=== PATIENT | male | born 1995 | race Caucasian/White ===

== ENCOUNTER 2020-05-06 13:44 | Inpatient (IN) ==
[2020-05-06] MEDS ORDERED: SODIUM CHLORIDE 0.9% 1000ML 2,000 ML IV ONE (13:55)
[2020-05-06] MEDS ORDERED: LEVOFLOXACIN/D5W 750 MG/150 ML BAG IV STA (14:00)
--- NOTE | 2020-05-06 14:21 | Emergency Department Note ---
Impression & Plan Bacteremia, Fever, Urinary tract infection, Hypomagnesemia ED Provider Note NAME: ELADIA WAGNER AGE: 24 SEX: M : 1995 ARRIVES VIA: Ambulance INFORMANT: Patient, ED PROVIDER(S): Gurmeet Zelaya DO CHIEF COMPLAINT: Fever HPI: The patient is a 24-year-old male who presented to the emergency department by ambulance for an evaluation of fever and body aches. The patient was seen in our facility last evening and had a complete work-up including blood cultures. He also had a COVID swab which is still pending. The patient was called to return to the emergency department by the pharmacist for an evaluation because of positive blood cultures for gram-negative bacteria. The patient continues to have fever and chills. He complains of no abdominal pain at this time but does state that he had left upper quadrant abdominal pain last evening. He does complain of cough but states that this is "because I smoke". The patient denies having any hemoptysis. He notices no rashes or lower extremity swelling. He notices no rectal bleeding or rectal discharge. He denies having any dysuria but does complain of some frequency. The patient did not take the antibiotic that was prescribed for him today. The patient did have a CAT scan last evening which did not reveal any acute inflammatory process in the abdomen. ROS: See above HPI for pertinent positives & negatives. A total of 10 systems reviewed and were otherwise negative. PAST MEDICAL HISTORY: See Below PAST SURGICAL HISTORY: See Below FAMILY HISTORY: See Below SOCIAL HISTORY: See Below HOME MEDICATIONS: See Below ALLERGIES: See Below VITALS: See Below PHYSICAL EXAMINATION: GENERAL: The patient is awake and alert. He is somewhat anxious appearing but overall comfortable. EYES: The conjunctivae are clear. The pupils are round and reactive. EARS, NOSE, MOUTH AND THROAT: The nose is without any evidence of any deformity. Mucous membranes are moist. Tongue is midline. NECK: The neck is nontender and supple. RESPIRATORY: Normal respiratory effort is noted there is no evidence of wheezing rhonchi or rales CARDIOVASCULAR: Tachycardic rate with regular rhythm was noted. There was no definite murmur. GASTROINTESTINAL: The abdomen is soft. Abdomen is nontender. MUSCULOSKELETAL/EXTREMITIES: There is no evidence of gross deformity full range of motion is noted in the hips and shoulders. SKIN: There is no obvious evidence of any rash. There are no petechiae, pallor or cyanosis noted. NEUROLOGIC: Patient is awake alert and oriented x3 strength is symmetric patellar reflexes are 2+ bilaterally MEDICAL DECISION MAKING: The patient is a 24-year-old male who presented to the emergency department for an acute febrile illness. The patient was seen in our facility last evening for similar complaints. He was diagnosed with urinary tract infection. He was started on Cipro. Today he was instructed to return to the emergency department because of bacteremia that was noted on blood cultures. He returns emergency department today febrile and tachycardic. He did not take his morning dose of antibiotic. The patient was treated with IV fluids and IV antibiotics. He was reevaluated multiple times. I discussed the patient's laboratory and radiographic studies with him. The [facility] group was notified about the patient. He is to be evaluated by them for further management and disposition. Triage Nursing notes reviewed. Prior medical records reviewed Vital Signs: reviewed and remarkable for tachycardia and fever. Differential diagnosis: Viral syndrome, otitis, pharyngitis, pneumonia, influenza, meningitis, urinary tract infection, sepsis, bacteremia, as well as other pathologies. ER treatment provided: See below Diagnostics interpreted by me: ECG: EKG was obtained in the emergency department. My interpretation is sinus tachycardia at 107 bpm. There was no ectopy. There was no acute ST segment abnormalities noted. This was compared to a tracing from June 142017. No significant changes were noted. Cardiac Monitoring: An order was placed for continuous cardiac monitoring. The monitor shows a rate of 115 bpm with sinus tachycardia rhythm. Laboratory studies: As stated above and show below. Imaging studies: See below Consultation(s): 1500: [facility] hospitalist group was notified about the patient. Past Med/Surg History Medical History (Updated 05/07/20 @ 03:15 by Rodrigo Rizzo MD) Chronic prostatitis Submandibular gland tenderness Surgical History No pertinent past surgical history Social History Smoking Status: Current every day smoker Hx Alcohol Use: Yes Alcohol type: hard liquor Preferred Language: Tam[place] Communication Ability: Effective Beliefs That Will Affect Care: Sabianism Sabianism Beliefs: Religion Current Living Situation: Alone Current Living Situation Comment: FAMILY CLOSE BY IN [place] Other Information That Helps Us Care for You: No Feels Safe at Home: Yes Safety Concerns: Feels Safe At This Time Allergies Allergies Allergy/AdvReac Type Severity Reaction Status Date / Time azithromycin Allergy Rash Verified 05/06/20 15:49 Home Meds Home Medications Medication Instructions Recorded Confirmed emtricitabine-tenofovir alafen 1 tab PO DIRECTED PRN 05/06/20 05/06/20 [Descovy] Previous Rx's Medication Instructions Recorded ciprofloxacin HCl [Cipro] 500 mg PO BID #20 tab 05/06/20 Results & Data (ED) Vital Signs Vital Signs - 24 hr 05/06/20 13:51 05/06/20 14:25 05/06/20 14:49 Temperature 38.4 C H Temperature Source Oral Pulse Rate 120 H 103 H Pulse Rate from SpO2 Sensor 101 H Respiratory Rate 16 18 Respiratory Effort / Characteristics Non-Labored Spontaneous Blood Pressure 146/99 H 126/80 Blood Pressure Mean 114 93 Pulse Oximetry 94 97 Oxygen Delivery Method Room Air Sepsis Recent Fever Within 48 Hours No Sepsis New/Unexplained Change in Mental Status N/A Sepsis Action Taken by Nursing Physician Notified 05/06/20 15:00 05/06/20 15:30 05/06/20 16:00 Temperature Temperature Source Pulse Rate 97 H 100 H 99 H Pulse Rate from SpO2 Sensor 98 H 102 H 110 H Respiratory Rate 22 20 20 Respiratory Effort / Characteristics Blood Pressure 134/82 123/74 117/86 Blood Pressure Mean 100 91 96 Pulse Oximetry 98 96 97 Oxygen Delivery Method Sepsis Recent Fever Within 48 Hours Sepsis New/Unexplained Change in Mental Status Sepsis Action Taken by [facility] Medications Current Medication List: was personally reviewed by me Laboratory Data Attestation: I reviewed the patient's lab results. Result diagrams: 05/06/20 14:05 05/07/20 07:31 Lab Results 05/06/20 05/06/20 05/06/20 Range/Units 14:05 14:05 14:05 WBC 9.50 (4.8-10.8) K/uL RBC 4.74 (4.7-6.1) M/uL Hgb 14.3 (14.0-18.0) g/dL Hct 42.3 (42-52) % MCV 89.2 (80-100) fL MCH 30.2 (25-34) pg MCHC 33.8 (32-36) g/dL RDW Std Deviation 41.9 (36.4-46.3) fL RDW Coeff of Adilene 12.8 (11.5-14.5) % Plt Count 168 (130-400) K/uL MPV 9.5 (7.4-10.4) fL Immature Gran % (Auto) 0.1 % Neut % (Auto) 79.0 % Lymph % (Auto) 13.6 % Hettinger % (Auto) 6.9 % Eos % (Auto) 0.2 % Baso % (Auto) 0.2 % Neut # (Auto) 7.50 H (1.4-6.5) K/uL Lymph # (Auto) 1.29 (1.2-3.4) K/uL Hettinger # (Auto) 0.66 H (0.11-0.59) K/uL Eos # (Auto) 0.02 (0-0.5) K/uL Baso # (Auto) 0.02 (0-0.2) K/uL Immature Gran # (Auto) 0.01 (0.00-0.02) K/uL PT 13.6 H (9.0-12.0) Seconds INR 1.3 H (0.9-1.1) APTT 33.5 H (21.0-31.0) Seconds PTT Ratio 1.2 Sodium 136 (136-145) mmol/L Potassium 3.5 (3.5-5.1) mmol/L Chloride 104 (98-107) mmol/L Carbon Dioxide 24 (21-32) mmol/L Anion Gap 9.0 (3-11) BUN 7 (7-18) mg/dl Creatinine 1.13 (0.6-1.4) mg/dl Est Cr Clr Drug Dosing 109.9 ml/min Est GFR ( Amer) 103.4 Est GFR (Non-Af Amer) 89.2 BUN/Creatinine Ratio 6.2 L (10-20) Glucose 95 (70-99) mg/dl Lactate (0.4-2.0) mmol/L Calcium 9.1 (8.5-10.1) mg/dl Magnesium 1.7 L (1.8-2.4) mg/dl Total Bilirubin 1.1 H (0.2-1) mg/dl AST 18 (15-37) U/L ALT 21 (12-78) U/L Alkaline Phosphatase 60 (45-117) U/L Troponin I < 0.015 (0-0.045) ng/ml Total Protein 7.8 (6.4-8.2) gm/dl Albumin 4.0 (3.4-5.0) gm/dl Globulin 3.8 (2.5-4.0) gm/dl Albumin/Globulin Ratio 1.1 (0.9-2) Procalcitonin (0-0.5) ng/ml 05/06/20 05/06/20 Range/Units 14:05 14:12 WBC (4.8-10.8) K/uL RBC (4.7-6.1) M/uL Hgb (14.0-18.0) g/dL Hct (42-52) % MCV (80-100) fL MCH (25-34) pg MCHC (32-36) g/dL RDW Std Deviation (36.4-46.3) fL RDW Coeff of Adilene (11.5-14.5) % Plt Count (130-400) K/uL MPV (7.4-10.4) fL Immature Gran % (Auto) % Neut % (Auto) % Lymph % (Auto) % Hettinger % (Auto) % Eos % (Auto) % Baso % (Auto) % Neut # (Auto) (1.4-6.5) K/uL Lymph # (Auto) (1.2-3.4) K/uL Hettinger # (Auto) (0.11-0.59) K/uL Eos # (Auto) (0-0.5) K/uL Baso # (Auto) (0-0.2) K/uL Immature Gran # (Auto) (0.00-0.02) K/uL PT (9.0-12.0) Seconds INR (0.9-1.1) APTT (21.0-31.0) Seconds PTT Ratio Sodium (136-145) mmol/L Potassium (3.5-5.1) mmol/L Chloride (98-107) mmol/L Carbon Dioxide (21-32) mmol/L Anion Gap (3-11) BUN (7-18) mg/dl Creatinine (0.6-1.4) mg/dl Est Cr Clr Drug Dosing ml/min Est GFR ( Amer) Est GFR (Non-Af Amer) BUN/Creatinine Ratio (10-20) Glucose (70-99) mg/dl Lactate 1.3 (0.4-2.0) mmol/L Calcium (8.5-10.1) mg/dl Magnesium (1.8-2.4) mg/dl Total Bilirubin (0.2-1) mg/dl AST (15-37) U/L ALT (12-78) U/L Alkaline Phosphatase (45-117) U/L Troponin I (0-0.045) ng/ml Total Protein (6.4-8.2) gm/dl Albumin (3.4-5.0) gm/dl Globulin (2.5-4.0) gm/dl Albumin/Globulin Ratio (0.9-2) Procalcitonin 0.69 H (0-0.5) ng/ml Administered Medications Acetaminophen (Acetaminophen 325 Mg Tab) 650 mg PO Q4H PRN PRN Reason: Pain or Fever Stop: 06/05/20 19:12 Last Admin: 05/06/20 21:24 Dose: 650 mg Documented by: [id number] Piperacillin Sod/Tazobactam (Sod 3.375 gm/ Dextrose) 115 mls @ 28.75 mls/hr IV Q8H LORENA; Protocol Stop: 05/20/20 21:59 Last Infusion: 05/07/20 10:20 Dose: 0 mls/hr Documented by: [id number] Admin: 05/07/20 06:10 Dose: 28.8 mls/hr Documented by: [id number] Infusion: 05/07/20 01:32 Dose: 0 mls/hr Documented by: [id number] Admin: 05/06/20 21:24 Dose: 28.8 mls/hr Documented by: [id number] Doxycycline Hyclate 100 mg/ (Dextrose) 110 mls @ 50 mls/hr IV Q12H LORENA Stop: 05/17/20 00:00 Last Admin: 05/07/20 12:12 Dose: 50 mls/hr Documented by: [id number] Infusion: 05/07/20 03:49 Dose: 0 mls/hr Documented by: [id number] Admin: 05/07/20 01:32 Dose: 50 mls/hr Documented by: [id number] Miscellaneous (Descovy- Order Awaiting Action) 1 ea N/A QS LORENA Stop: 06/06/20 00:00 Last Admin: 05/07/20 08:30 Dose: Not Given Documented by: [id number] Admin: 05/06/20 23:46 Dose: Not Given Documented by: [id number] Discontinued Medications Acetaminophen (Acetaminophen 500 Mg Tab) 1,000 mg PO NOW STA Stop: 05/06/20 14:57 Last Admin: 05/06/20 15:54 Dose: 1,000 mg Documented by: [id number] Sodium Chloride (Nss 1000ml) 2,000 mls @ 999 mls/hr IV .Q2H1M ONE Stop: 05/06/20 15:55 Last Infusion: 05/06/20 16:22 Dose: 0 mls/hr Documented by: [id number] Admin: 05/06/20 14:35 Dose: 999 mls/hr Documented by: [id number] Levofloxacin/Dextrose (Levaquin/D5w) 750 mg in 150 mls @ 100 mls/hr IV NOW STA Stop: 05/06/20 15:29 Last Infusion: 05/06/20 16:22 Dose: 0 mls/hr Documented by: [id number] Admin: 05/06/20 14:48 Dose: 100 mls/hr Documented by: [id number] Piperacillin Sod/Tazobactam Sod (Zosyn) 4.5 gm in 120 mls @ 240 mls/hr IV NOW ONE Stop: 05/06/20 15:21 Last Infusion: 05/06/20 17:07 Dose: 0 mls/hr Documented by: [id number] Admin: 05/06/20 16:22 Dose: 240 mls/hr Documented by: [id number] Magnesium Sulfate/Dextrose (Magnesium Sulfate / D5w) 1 gm in 100 mls @ 100 mls/hr IV Q1H LORENA Stop: 05/06/20 16:58 Last Infusion: 05/06/20 19:47 Dose: 0 mls/hr Documented by: [id number] Admin: 05/06/20 18:11 Dose: 100 mls/hr Documented by: [id number] Infusion: 05/06/20 17:22 Dose: 100 mls/hr Documented by: [id number] Admin: 05/06/20 16:22 Dose: 100 mls/hr Documented by: [id number] Potassium Chloride/Sodium Chloride (Normal Saline W/20 Meq Kcl) 20 meq in 1,000 mls @ 150 mls/hr IV .Q6H40M LORENA Stop: 05/07/20 09:04 Last Infusion: 05/07/20 08:30 Dose: 0 mls/hr Documented by: [id number] Admin: 05/07/20 01:33 Dose: 150 mls/hr Documented by: [id number] Infusion: 05/07/20 01:33 Dose: 150 mls/hr Documented by: [id number] Admin: 05/06/20 20:02 Dose: 150 mls/hr Documented by: [id number] Imaging Data Radiologist's Impression: SINGLE VIEW CHEST CLINICAL HISTORY: Sepsis. FINDINGS: An AP, portable, upright chest radiograph is compared to study dated 05/05/2020. The cardiomediastinal silhouette is unremarkable. There is mild elevation of right hemidiaphragm. The lungs and pleural spaces are clear. No pneumothorax is seen. The bony thorax is grossly intact. IMPRESSION: No active disease in the chest and no change from yesterday. ACT 112: Negative or not required by law. Electronically signed by: Ronn Chaney M.D. 05/06/2020 2:59 PM Dictated: 05/06/201458 Transcribed: 05/06/201458 Blood Pressure Blood Pressure Findings: Normal blood pressure Discharge Plan Visit Data Chief Complaint: Abnormal Labs/Diagnostic Testing ED Provider: Gurmeet Zelaya Discharge Problem: Bacteremia, Fever, Urinary tract infection, Hypomagnesemia Patient Disposition: Admitted As Inpatient Condition: Good Discharge Instructions Interventions: ED Discharge Assessment Last Done: 05/06/20 18:45 Discharge Problem: Fever Qualifiers: Fever type: unspecified Qualified Code(s): R50.9 - Fever, unspecified Urinary tract infection Qualifiers: Urinary tract infection type: site unspecified Hematuria presence: without hematuria Qualified Code(s): N39.0 - Urinary tract infection, site not specified
[2020-05-06 14:31] LABS: Basophils # (auto) 0.02 K/uL (0-0.2); Basophils % (auto) 0.2 %; Eosinophils # (auto) 0.02 K/uL (0-0.5); Eosinophils % (auto) 0.2 %; Hematocrit (blood only) 42.3 % (42-52); Hemoglobin 14.3 g/dL (14.0-18.0); Immature Granulocytes # (auto) 0.01 K/uL (0.00-0.02); Immature Granulocytes % (auto) 0.1 %; Lymphocytes # (auto) 1.29 K/uL (1.2-3.4); Lymphocytes % (auto) 13.6 %; Mean Corpuscular Hemoglobin 30.2 pg (25-34); Mean Corpuscular Hgb Conc 33.8 g/dL (32-36); Mean Corpuscular Volume 89.2 fL (80-100); Mean Platelet Volume 9.5 fL (7.4-10.4); Monocytes # (auto) 0.66 K/uL (0.11-0.59); Monocytes % (auto) 6.9 %; Platelet Count 168 K/uL (130-400); RDW Coefficient of Variation 12.8 % (11.5-14.5); RDW Standard Deviation 41.9 fL (36.4-46.3); Red Blood Count 4.74 M/uL (4.7-6.1)
[2020-05-06 14:46] LABS: INR 1.3 (0.9-1.1); Partial Thromboplastin Ratio 1.2; Partial Thromboplastin Time 33.5 Seconds (21.0-31.0); Prothrombin Time 13.6 Seconds (9.0-12.0)
[2020-05-06] MEDS ORDERED: PIPERACILLIN/TAZOBACTAM 4.5 GM/120 ML BAG IV ONE (14:52)
[2020-05-06] MEDS ORDERED: PIPERACILL/TAZOBAC CONSULT ACTIVE PRN (14:52)
[2020-05-06 14:53] LABS: Alanine Aminotransferase 21 U/L (12-78); Aspartate Aminotransferase 18 U/L (15-37); BUN Creatinine Ratio 6.2 (10-20); Blood Urea Nitrogen 7 mg/dl (7-18); Calcium 9.1 mg/dl (8.5-10.1); Carbon Dioxide 24 mmol/L (21-32); Chloride 104 mmol/L (98-107); Creatinine Clr Calc Pharmacy 109.9 ml/min; Est GFR (African American) 103.4; Est GFR (Non-African American) 89.2; Glucose 95 mg/dl (70-99); Magnesium 1.7 mg/dl (1.8-2.4); Potassium 3.5 mmol/L (3.5-5.1); Sodium 136 mmol/L (136-145)
[2020-05-06] MEDS ORDERED: ACETAMINOPHEN 500 MG TAB PO STA (14:56)
[2020-05-06 14:58] LABS: Albumin Globulin Ratio 1.1 (0.9-2); Alkaline Phosphatase 60 U/L (45-117); Bilirubin,Total 1.1 mg/dl (0.2-1); Globulin 3.8 gm/dl (2.5-4.0); Total Protein 7.8 gm/dl (6.4-8.2); Troponin I < 0.015 ng/ml (0-0.045)
--- NOTE | 2020-05-06 15:00 | XRay Report ---
SINGLE VIEW CHEST CLINICAL HISTORY: Sepsis. FINDINGS: An AP, portable, upright chest radiograph is compared to study dated 05/05/2020. The cardiom ediastinal silhouette is unremarkable. There is mild elevation of right hemidiaphragm. The lungs and pleural spaces are clear. No pneumothorax is seen. The bony thorax is grossly intact. IMPRESSION: No active disease in the chest and no change from yesterday. ACT 112: Negative or not required by law. Electronically signed by: Ronn Chaney M.D. 05/06/2020 2:59 PM
[2020-05-06] MEDS: MAGNESIUM SULFATE / D5W 1 GM/100 ML BAG IV SCH ×2 (16:22→18:11)
[2020-05-06 16:42] LABS: Appearance Urine Clear (Clear); Bacteria Urine Automated Negative (Negative); Bilirubin Urine Negative (Negative); Blood Urine Negative (Negative); Color Urine Yellow; Glucose Urine UA Negative (Negative); Ketones Urine Trace (Negative); Leukocyte Esterase Urine Trace (Negative); Nitrite Urine Negative (Negative); Protein Urine Negative (Negative); RBC Urine Automated 0-4 /hpf (0-4); Specific Gravity Urine 1.008 (1.000-1.030); Urobilinogen Urine Negative (Negative); pH Urine 7.5 (4.5-7.5)
--- NOTE | 2020-05-06 16:58 | Electrocardiogram Report ---
Test Reason : Blood Pressure : / mmHG Vent. Rate : 107 BPM Atrial Rate : 107 BPM P-R Int : 128 ms QRS Dur : 078 ms QT Int : 312 ms P-R-T Axes : 034 019 032 degrees QTc Int : 416 ms Poor data quality, interpretation may be adversely affected Sinus tachycardia Otherwise normal ECG When compared with ECG of 05-MAY-2020 22:43, (unconfirmed) No significant change was found Confirmed by David Cleaning ([id number]) on 05/06/2020 4:58:04 PM Referred By: REFERRED SELF Confirmed By:Yaw Cleaning
--- NOTE | 2020-05-06 17:06 | History & Physical Report ---
Date of Service May 06, 2020 Assessment & Plan (1) Acute bacterial prostatitis: Continue Zosyn pending results of culture. Add doxycycline as Zosyn would not cover chlamydia. (2) Bacteremia: GNR on blood culture (3) Hypomagnesemia: Mg 1.6 on admission. Mag sulfate 2 g IV given in ER. Monitor with level in a.m. (4) Muscle spasm of back: Acetaminophen, heating pad, encourage stretching. Likely causing his headaches. (5) Headache: As above (6) Submandibular gland tenderness: No pain currently but recurrent episodes of this. Possibly traumatic vs. stone vs. dehydration. Stop using gatorade to treat this. Likely helps due to stimulating secretion. Same effect can be had with small amount of sour fruit and hydrating with water. (7) Tobacco use disorder: Increasing risk of infections. Highly recommend cessation. (8) High risk sexual behavior: Continue PREP. Urine PCR for chlamydia and gonorrhea. Admission and Anticipated Discharge Date Admission Date: 05/06/2020 History of Present Illness Chief Complaint: Bacteremia Primary Care Provider: DO Marko Bear Mindi is a 24 year old male with "recurrent UTIs" who returns to the ER w ith fever and body aches after being called by the ER pharmacist due to positive blood cultures for GNR. A COVID-19 test was also taken which was sent to [facility] and is pending at this time. UA was positive for infection and he was given ceftriaxone 2g IV and started on ciprofloxacin. Despite this he continued to have fevers and was dizzy at home to the point of his nearly passing out. His main complaint is left sided abdominal pain, no radiation, no association with bowel movements. He is also having b/l testicular pain. No pain on BM. He is homosexual and receives anal unprotected sex. He reports prostate pain on multiple occasions both with anal sex and "prostate toys" in the past but with resolution of symptoms in between episodes. He does note a history of "recurrent UTIs" requiring 10 day courses of ciprofloxacin but dysuria will frequently return a week after stopping the antibiotics. He has been having his usual prostate pain on and off for the last 3 months. However in the last two weeks he has been having increased problems on trying to start to urinate and more constant pain. This has been associated with him "edging" - masturbating but stopping just prior to ejaculation. No urinary frequency, dysuria, nocturia, poor stream, terminal dribbling. No rectal pain or discharge. Allergies Allergy/AdvReac Type Severity Reaction Status Date / Time azithromycin Allergy Rash Verified 05/06/20 15:49 Home Medications Home Medications Medication Instructions Recorded Confirmed Type ciprofloxacin HCl [Cipro] 500 mg PO BID #20 tab 05/06/20 05/06/20 Rx emtricitabine-tenofovir alafen 1 tab PO DIRECTED PRN 05/06/20 05/06/20 History [Descovy] Past Med/Surg History Medical History Chronic prostatitis Submandibular gland tenderness Surgical History No pertinent past surgical history Social History Smoking Status: Current every day smoker Hx Alcohol Use: Yes Alcohol type: hard liquor Preferred Language: [place] Communication Ability: Effective Beliefs That Will Affect Care: Gnosticist Gnosticist Beliefs: Yazidi Current Living Situation: Alone Current Living Situation Comment: FAMILY CLOSE BY IN [place] Other Information That Helps Us Care for You: No Feels Safe at Home: Yes Safety Concerns: Feels Safe At This Time Review of Systems Review of Systems: All systems reviewed & are unremarkable except as noted in HPI & below Physical Exam Constitutional: well developed, well nourished and + obese; no acute distress Eyes: + anicteric sclerae; normal pupil size ENMT: external ear and nose normal, oropharynx normal Neck: trachea midline, no thyromegaly Respiratory: normal respiratory effort, lungs clear to auscultation Cardiovascular: Rate/Rhythm: regular rhythm and + tachycardic Heart Sounds: no murmur Extremities: normal capillary refill and + pedal edema; no calf tenderness Gastrointestinal (Abdomen): Inspection/Auscultation: abdomen normal to inspection and normal bowel sounds; abdomen not distended Percussion/Palpation: + abdomen tender (Left lower quadrant) and abdomen soft; no guarding and abdomen not rigid Musculoskeletal: no cyanosis or clubbing, extremities motor strength 5/5 Skin: no rashes, warm and dry Neurologic: moves all extremities and awake; not confused Psychiatric: A+Ox3, euthymic affect Genitourinary: no CVA tenderness, no penis abnormality and no scrotum abnormality Lymphatic: no inguinal lymphadenopathy Results & Data Results & Data ([facility]) Vital Signs (Past 12 Hours) Vital Signs Temp Pulse Resp BP Pulse Ox 05/06/20 16:00 99 H 20 117/86 97 05/06/20 15:30 100 H 20 123/74 96 05/06/20 15:00 97 H 22 134/82 98 05/06/20 14:49 103 H 18 126/80 97 05/06/20 13:51 38.4 C H 120 H 16 146/99 H 94 Code Status & VTE Plan VTE Prophylaxis Plan VTE Prophylaxis will be ordered: No PG Care Time/CCT Total # of Minutes Spent Total Time Spent with Patient: Total time spent is greater than 50% in coordination of care (as documented) at patient's floor/unit and/or counseling patient: Coding Level of Care Code 39820 Initial Inpt Care Lvl 3 Diagnoses Acute bacterial prostatitis N41.0 Bacteremia R78.81 Hypomagnesemia E83.42 Muscle spasm of back M62.830 Headache R51 Submandibular gland tenderness K11.8 Tobacco use disorder F17.200 High risk sexual behavior Z72.51
[2020-05-06] MEDS ORDERED: ACETAMINOPHEN 325 MG TAB PO PRN (19:13)
[2020-05-06] MEDS: NSS + 20MEQ KCL 20 MEQ/1,000 ML BAG IV SCH (20:02)
[2020-05-06] MEDS: PIPERACILLIN/TAZOBACTAM 3.375 GM in DEXTROSE 5% 100 ML IV SCH (21:24)
[2020-05-06] MEDS ORDERED: LACTATED RINGER'S 1,000 ML IV SCH (22:15)
[2020-05-07] MEDS: DOXYCYCLINE HYCLATE 100 MG in DEXTROSE 5% 100 ML IV SCH ×2 (01:32→12:12)
[2020-05-07] MEDS: NSS + 20MEQ KCL 20 MEQ/1,000 ML BAG IV SCH (01:33)
[2020-05-07] MEDS: PIPERACILLIN/TAZOBACTAM 3.375 GM in DEXTROSE 5% 100 ML IV SCH ×3 (06:10→22:10)
[2020-05-07 08:24] LABS: BUN Creatinine Ratio 5.6 (10-20); C Reactive Protein 6.59 mg/dl (0-0.29); Calcium 8.3 mg/dl (8.5-10.1); Est GFR (African American) 132.6; Est GFR (Non-African American) 114.4; Potassium 3.9 mmol/L (3.5-5.1)
--- NOTE | 2020-05-07 17:44 | Hospitalist Progress Note ---
Date of Service May 07, 2020 Assessment & Plan (1) Acute bacterial prostatitis: Continue zosyn pending results of culture. blood and urine culture from initial ED visit are still pending today no fever, WBC normal continue Doxycycline to cover Chlamydia and Gonorrhea, those results still pending as well COVID negative, remove isolation precautions anticipate urine and blood culture results should be back tomorrow, can hopefully transition to PO antibiotics would treat for 4 weeks total to cover prostatitis would use Doxycycline for 7 days total to cover possible G/C infection as those results may not be back prior to discharge (2) Bacteremia: GNR on culture still nothing more specific on culture today, continue Zosyn no fever, WBC stable (3) Hypomagnesemia: replaced (4) Muscle spasm of back: Acetaminophen, heating pad, encourage stretching. (5) Headache: (6) Submandibular gland tenderness: No pain currently but recurrent episodes of this. Possibly traumatic vs. stone vs. dehydration. Stop using gatorade to treat this. Likely helps due to stimulating secretion. Same effect can be had with small amount of sour fruit and hydrating with water. (7) Tobacco use disorder: Increasing risk of infections. Highly recommend cessation. (8) High risk sexual behavior: Continue PREP. Urine PCR for chlamydia and gonorrhea. instructed that he needs to abstain from anal intercourse for at least a month to allow prostatitis and UTI to adequately resolved discussed that he will continue to be at risk for infections in the future Admission and Anticipated Discharge Date Admission Date: May 06, 2020 Subjective patient resting comfortably in bed, no acute issues discussed reasons for getting prostatitis and bacteremia told him that he would need to abstain from anal sexual activity for at least a month he told me that he forgot to mention to admitting physician that he also likes to participate in "medical play" he said that he performs a straight cath on himself about twice a week, he swears that it is always sterile technique with gloves reviewed chart, no fevers, vitals stable COVID was a send out, still pending, ordered a rapid test in house to stop wasting PPE, it came back negative, remove isolation blood and urine cultures from the ED visit are still pending, still says gram negative rods Review of Systems Review of Systems: All systems reviewed & are unremarkable except as noted in Subjective Constitutional: no fever, no chills, no sweats, no fatigue and no weakness Respiratory: no cough and no dyspnea Cardiovascular: no chest pain and no edema Gastrointestinal: no abdominal pain, no nausea, no vomiting, no constipation and no diarrhea/loose stools Genitourinary: no dysuria, no difficulty urinating, no urinary frequency, no urinary incontinence, no hematuria, no flank pain, no genital pain, no testicle pain and no penile discharge Integumentary: no rash Physical Exam Constitutional: well developed, comfortable and + overweight; no acute distress Eyes: PERRL, conjunctivae normal, anicteric sclerae ENMT: external ear and nose normal, oropharynx normal Neck: trachea midline, no thyromegaly Respiratory: normal respiratory effort, lungs clear to auscultation Cardiovascular: RRR, no murmur, no edema Gastrointestinal (Abdomen): normal bowel sounds, soft, nontender, no hepatosplenomegaly Musculoskeletal: no cyanosis or clubbing, extremities motor strength 5/5 Skin: no rashes, warm and dry Neurologic: patellar DTR's 2+ bilat, sensation intact and PERRL, EOMI, accommodation nl, no face palsy, no dysarthria Psychiatric: A+Ox3, euthymic affect Lymphatic: no cervical or axillary lymphadenopathy Results & Data Results & Data ([facility]) Vital Signs (Past 12 Hours) Vital Signs Temp Pulse Pulse Resp BP BP Pulse Ox 05/07/20 16:00 37.3 C 85 80 18 125/69 94 05/07/20 12:00 36.7 C 80 18 112/64 98 05/07/20 11:39 90 05/07/20 08:20 37.5 C 84 20 121/74 94 Laboratory Results Laboratory Results - last 24 hr 05/07/20 05/07/20 05/07/20 07:31 07:31 17:10 ESR 4 Sodium 140 Potassium 3.9 Chloride 110 H Carbon Dioxide 22 Anion Gap 8.0 BUN 5 L Creatinine 0.92 Est Cr Clr Drug Dosing 135.0 Est GFR ( Amer) 132.6 Est GFR (Non-Af Amer) 114.4 BUN/Creatinine Ratio 5.6 L Glucose 83 Calcium 8.3 L C-Reactive Protein 6.59 H C.trachomatis RNA COVID[facility]19 [facility] N.gonorrhoeae RNA SARS-CoV-2, RNA, NAAT Reference Lab Comment 05/07/20 05/07/20 17:10 Unknown ESR Sodium Potassium Chloride Carbon Dioxide Anion Gap BUN Creatinine Est Cr Clr Drug Dosing Est GFR ( Amer) Est GFR (Non-Af Amer) BUN/Creatinine Ratio Glucose Calcium C-Reactive Protein C.trachomatis RNA Pending COVID-19 Eval Order N.gonorrhoeae RNA Pending SARS-CoV-2, RNA, NAAT NEGATIVE Reference Lab Comment Pending Medications Administered Current Inpatient Medications Acetaminophen (Acetaminophen 325 Mg Tab) 650 mg PO Q4H PRN PRN Reason: Pain or Fever Stop: 06/05/20 19:12 Last Admin: 05/06/20 21:24 Dose: 650 mg Documented by: Piperacillin Sod/Tazobactam (Sod 3.375 gm/ Dextrose) 115 mls @ 28.75 mls/hr IV Q8H LORENA; Protocol Stop: 05/20/20 21:59 Last Admin: 05/07/20 14:37 Dose: 28.8 mls/hr Documented by: Doxycycline Hyclate 100 mg/ (Dextrose) 110 mls @ 50 mls/hr IV Q12H LORENA Stop: 05/17/20 00:00 Last Infusion: 05/07/20 14:38 Dose: Infused Documented by: Miscellaneous (Descovy- Order Awaiting Action) 1 ea N/A QS LORENA Stop: 06/06/20 00:00 Last Admin: 05/07/20 16:30 Dose: Not Given Documented by: Miscellaneous Information (Piperacill/Tazobac Consult Active) 1 ea N/A UD PRN PRN Reason: Consult Stop: 06/05/20 14:51 PG Care Time/CCT Total # of Minutes Spent Total Time Spent with Patient: Total time spent is greater than 50% in coordination of care (as documented) at patient's floor/unit and/or counseling patient: Coding Level of Care Code 03496 Subseq Hosp Care Lvl 3 Diagnoses Acute bacterial prostatitis N41.0 Bacteremia R78.81 Hypomagnesemia E83.42 Muscle spasm of back M62.830 Headache R51 Submandibular gland tenderness K11.8 Tobacco use disorder F17.200 High risk sexual behavior Z72.51
[2020-05-07] MEDS ORDERED: ARTIFICIAL TEARS OP PRN (21:12)
[2020-05-07] MEDS ORDERED: Nursing to Pharmacy Communication SCH (21:15)
[2020-05-08] MEDS: DOXYCYCLINE HYCLATE 100 MG in DEXTROSE 5% 100 ML IV SCH ×2 (03:21→12:05)
[2020-05-08] MEDS: PIPERACILLIN/TAZOBACTAM 3.375 GM in DEXTROSE 5% 100 ML IV SCH (05:26)
[2020-05-08 07:41] LABS: Creatinine Clr Calc Pharmacy 130.1 ml/min; Est GFR (African American) 129.2; Est GFR (Non-African American) 111.5
[2020-05-08] MEDS: LACTOBACILLUS ACIDOPHILUS (FLORANEX) TAB PO SCH ×3 (08:59→16:57)
[2020-05-08] MEDS ORDERED: CIPROFLOXACIN 500 MG TAB PO SCH (09:30)
--- NOTE | 2020-05-08 16:39 | Discharge Summary ---
Date of Service date of admission - May 06, 2020 date of discharge - May 08, 2020 Admission HPI Per Admitting Provider Marko Obregon is a 24 year old male with "recurrent UTIs" who returns to the ER with fever and body aches after being called by the ER pharmacist due to posit wodo blood cultures for GNR. A COVID-19 test was also taken which was sent to [facility] and is pending at this time. UA was positive for infection and he was given ceftriaxone 2g IV and started on ciprofloxacin. Despite this he continued to have fevers and was dizzy at home to the point of his nearly passing out. His main complaint is left sided abdominal pain, no radiation, no association with bowel movements. He is also having b/l testicular pain. No pain on BM. He is homosexual and receives anal unprotected sex. He reports prostate pain on multiple occasions both with anal sex and "prostate toys" in the past but with resolution of symptoms in between episodes. He does note a history of "recurrent UTIs" requiring 10 day courses of ciprofloxacin but dysuria will frequently return a week after stopping the antibiotics. He has been having his usual prostate pain on and off for the last 3 months. However in the last two weeks he has been having increased problems on trying to start to urinate and more constant pain. This has been associated with him "edging" - masturbating but stopping just prior to ejaculation. No urinary frequency, dysuria, nocturia, poor stream, terminal dribbling. No rectal pain or discharge. Principal Diagnosis septicemia 2nd UTI/acute prostatitis Discharge Exam Constitutional well developed and well nourished; no acute distress and no altered mental status ENMT external ear and nose normal, oropharynx normal Respiratory normal respiratory effort, lungs clear to auscultation Cardiovascular RRR, no murmur, no edema Heart Sounds: normal S1 and normal S2 Vessels: posterior tibial pulses present and dorsalis pedis pulses present Gastrointestinal (Abdomen) normal bowel sounds, soft, nontender, no hepatosplenomegaly Psychiatric A+Ox3, euthymic affect Discharge Data Allergies Allergy/AdvReac Type Severity Reaction Status Date / Time azithromycin Allergy Rash Verified 05/06/20 15:49 Hospital Course (1) Septicemia: Blood cultures from 05/05/20 grew klebsiella pneumoniae. These had been drawn during a previous emergency room visit. Upon admission on 05/06/20 a urine culture also grew klebsiella pneumoniae. He was initiated on broad-spectrum IV antibiotics after repeat blood cultures were drawn. Repeat blood cultures remained negative. He clinically improved with antibiotics and supportive care. Due to the bacteremia/septicemia and acute prostatitis he will complete 30 days of oral cipro 500mg BID. (2) Acute bacterial prostatitis: 30-day course of oral cipro. Patient was voiding without difficulty at discharge thus alpha oyni therapy was deferred. To be complete urine studies for GC and chlamydia were dispatched. He was placed on 7-days of doxycycline to cover for these STDs while awaiting test results. (3) Urinary tract infection: (4) Tobacco use disorder: Counseled to quit. (5) High risk sexual behavior: Patient was counseled on importance of safe sex practices including consistent condom use. He takes descovy prophylaxis on prn basis. Total Time Total Time Spent Total Time Spent (In Minutes): 40 Total Time Includes: Examination of the Patient, Discharge Planning and Medication Reconciliation Discharge Plan Discharge Items Patient Disposition: Home - Self-Care Reason For Visit: BACTEREMIA (infection of the blood stream) Discharge Diagnosis: 1. urinary tract infection / probable prostatitis - resolving 2. bacteremia (blood stream infection) / sepsis - resolved Condition on Discharge: Good Activity: As commented below Activity Comment: gradually increase your activity over the next 5 days Non-emergency contact: Primary Care Provider Call non-emergency contact if: you have any medication questions, your symptoms worsen, your pain is not controlled, your pain is worsening and you have a fever Follow-up/Referrals: Lyndsay Neumann DO [Primary Care Provider] - (please see your family doctor within 5-7 days ) Diet: Regular Addtl Attending Provider Instructions: You were admitted to the hospital because of blood stream infection (bacteremia) and urinary tract infection. We were also concerned about infection of the prostate gland ("prostatitis"). The bacteremia was due to the urinary tract infection. Your symptoms, fever, etc all improved with IV antibiotics. The culprit bacterium was klebsiella as seen on your cultures. COVID-19 testing returned NEGATIVE. C diff stool test was negative. Typically we treat suspected prostate infection for ~30 days with antibiotics. Thus, we are recommendin. ciprofloxacin (cipro) 500mg twice daily for 30 days. New prescription sent to [facility] on [address] for you. Start this TONIGHT. The cipro will cover the blood stream infection as well. 2. doxycycline 100mg twice daily for 5 days, first dose tonight. This is to cover for STDs/chlamydia. Please know that doxycycline can sometimes cause heartburn. It can also cause a rash if you go out in the sun while you are taking it. Thus, cover up and use sunscreen liberally over the next week. 3. probiotics once daily for 30 days to help prevent diarrhea from the cipro. 4. please be safe during sexual intercourse by using condoms at all times. 5. please wear a mask any time you leave your home to reduce your chances of acquiring coronavirus (COVID-19). Practice good hand hygiene/hand washing, social distancing, etc. 6. see your family doctor within 5-7 days. Return to [facility] if -- * you have recurrent fevers over 100.4 degrees * you have inability to pass your urine * you develop severe diarrhea * you develop severe abdominal pain or back pain * you develop severe testicular pain * any other concerns Pending Studies at Discharge: Yes Studies:: 1. repeat blood cultures from 05/06/20 but thus far are negative 2. STD testing (chlamydia, etc) Stand-Alone Forms: My [facility], Smoking Cessation Medications and DC Order Prescriptions: New Saccharomyces boulardii 250 mg capsule 250 mg PO DAILY 30 Days Qty: 30 RF: 0 Continued Descovy 200-25 mg tablet 1 tab PO DIRECTED PRN (Reason: PrEP) RF: 0 ciprofloxacin HCl [Cipro] 500 mg tablet 500 mg PO BID 30 Days Qty: 60 RF: 0 Discharge Orders: Discharge Order (Routine); Ordered 05/08/20 Ordered By: Rodrigo Villareal Admission Data Admit Date/Time: 05/06/20 16:20 Attending Provider: Rodrigo Villareal Admit Provider: Rodrigo Rizzo Primary Care Provider: Lyndsay Neumann Other Providers: Rodrigo Rizzo Other Interventions: Discharge Summary Assessment (RN) Last Done: 05/08/20 15:34 Coding Level of Care Code D/C Day Management >30 mins Diagnoses Septicemia A41.9 Acute bacterial prostatitis N41.0 Urinary tract infection N39.0 Hematuria presence: without hematuria Urinary tract infection type: site unspecified Tobacco use disorder F17.200 High risk sexual behavior Z72.51
[2020-05-10 07:35] LABS: Chlamydia Trach RNA NOT DETECTED (NOT DETECTED); GC (Neis gonorrhoeae) RNA NOT DETECTED (NOT DETECTED)
== END 2020-05-08 17:00 | disposition home or self-care (01) | DRG 872 ==
LOC: ED 13:44 → 2W 16:20 → SUATTDRO 16:20 → 2W 18:45
DX: R51 Headache; R68.84 Jaw pain; E83.42 Hypomagnesemia; Z88.1 Allergy status to other antibiotic agents; M62.830 Muscle spasm of back; Z72.52 High risk homosexual behavior; F17.200 Nicotine dependence, unspecified, uncomplicated; N41.0 Acute prostatitis; A64 Unspecified sexually transmitted disease; A41.59 Other Gram-negative sepsis; Z87.440 Personal history of urinary (tract) infections